=== PATIENT | male | born 1950 | race Caucasian/White ===

== ENCOUNTER 2018-08-06 07:01 | Day surgery (SDC) | payer MEDICARE, OTHER, BC ==
[2018-08-06] MEDS ORDERED: FENTAnyl 50 MCG/ML VIAL (08:26)
[2018-08-06] MEDS ORDERED: PROPOFOL 20 ML (08:26)
[2018-08-06] MEDS ORDERED: ONDANSETRON 4 MG INJ IV (08:30)
== END 2018-08-06 12:41 | disposition home or self-care (01) ==
LOC: GIL 07:01
DX: Z12.11 Encounter for screening for malignant neoplasm of colon (principal); K64.0 First degree hemorrhoids; E78.5 Hyperlipidemia, unspecified; E11.9 Type 2 diabetes mellitus without complications
CPT/HCPCS: 82962